=== PATIENT | female | born 1985 | race African-American/Black ===

== ENCOUNTER 2020-05-03 00:48 | Emergency (ER) | payer OTHER ==
--- NOTE | 2020-05-03 00:52 | PDOC ---
History of Present Illness - General Chief Complaint: Pain Stated Complaint: BURNING IN THROAT Time Seen by Provider: 05/03/20 00:51 - History of Present Illness Initial Comments: 05/03/20 01:45 This 34-year-old woman with a history of syphilis (diagnosed and treated 3 weeks ago) presents with 1 day history of throat burning and 3 to 4-day history of vaginal burning/itching with whitish discharge. Patient states that she was treated with "3 shots" for diagnosed syphilis 3 weeks ago; she is due for repeat testing in 1 week. She states that she is sexually active with one partner only; he was treated for syphilis approximately 2 weeks ago. Since then, she states that she has had a normal menstrual period ending 4 days ago; soon after that, she noted whitish discharge and local irritation/burning and itching in the vulvar area. She denies dysuria/urinary frequency/hematuria. Patient has had vaginal candidiasis in the past and states that her symptoms are similar to previous episodes. Also, the patient states that she noted burning in her mouth earlier today; yesterday, she drank a large amount of alcohol at [facility]. When she awakened today, she noted that she had pain and burning in her throat (different from "sore throat"). No difficulty swallowing/shortness of breath/wheezing. No rash or itching of her skin. 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 EYES: PERRLA, EOMI, sclera anicteric, conjunctiva clear. ENT: Ears normal, nares patent. Mucous membranes moist. No erythema, exudates or edema Oropharynx: Small (2 mm) papule on whitish base beneath tongue, right side NECK: Normal range of motion, supple without lymphadenopathy, JVD, or masses. LUNGS: Breath sounds equal, clear to auscultation bilaterally. No wheezes, and no crackles. HEART:Regular rate and rhythm, normal S1 and S2 without murmur, rub or gallop. ABDOMEN:.normal bowel sounds No guarding,tenderness or rebound.No masses No distention. PELVIC: Normal female external genitalia without lesions, tenderness or edema Vaginal pastor moderately erythematous with thick whitish discharge; cervix appears normal without lesions or CMT EXTREMITIES: Normal range of motion, no edema. No clubbing or cyanosis. No erythema, or tenderness. NEUROLOGICAL: Cranial nerves II through XII grossly intact. Normal speech. No focal neurological deficits. SKIN: Warm, Dry, normal turgor, no rashes or lesions noted. Medical Decision Making - Medical Decision Making As noted above, this otherwise healthy 34-year-old woman recently been diagnosed and treated for syphilis, presents with burning in her throat for 1 day and several days of vulvar irritation/itching with whitish discharge. Exam as noted above with aphthous ulcers seen in her mouth and pelvic exam consistent with vaginal candidiasis. Cervical swab sent for chlamydia/GC Patient is due for repeat testing for syphilis within the next weekpatient is planning to arrange this follow-up within the next few days. Triamcinolone in Orabase prescribed for aphthous ulcer. The patient has been recommended not to consume alcohol, sour foods or excessively salty foods over the next several days. Also, she will be empirically treated for vaginal candidiasis with miconazole cream daily for 7 days She should return to the ER if she has worsening pain on swallowing, any difficulty with breathing, throat closing sensation. Otherwise, she should follow-up with her general medical doctor within the next few days. Discharge - Discharge Information Problems reviewed: Yes Clinical Impression/Diagnosis: Vaginal candidiasis, Aphthous ulcer of mouth Condition: Stable Disposition: HOME - Additional Discharge Information Prescriptions: Miconazole Nitrate [Monistat-7] 100 mg PV HS #7 supp.vag - Follow up/Referral - Patient Discharge Instructions Patient Printed Discharge Instructions: Aphthous Ulcers, DI for Vaginal Yeast Infection Additional Instructions: Avoid drinking alcohol or eating sour/salty foods Triamcinolone/Orabase paste on mouth sores 3 times a day as needed Monistat vaginal suppositories daily for 1 week Follow-up with your doctors as scheduled within the next week to 10 days Return to ER if you have persistent or severe symptoms - Post Discharge Activity Work/Back to School Note: Back to Work
[2020-05-03 00:57] VITALS: BP 130/80; PULSE 60; TEMP 97.9; BMI 19.8
== END 2020-05-03 01:40 | disposition home or self-care (01) ==
LOC: FER 00:48
DX: K12.0 Recurrent oral aphthae (principal); B37.3 Candidiasis of vulva and vagina
CPT/HCPCS: 36415; 87491; 87591; 99283-25